=== PATIENT | male | born 1990 | race Two or more races ===

== ENCOUNTER 2023-11-29 16:56 | Emergency (ER) | payer OTHER ==
[~2023-11-29] VITALS: Ht 188 cm; Wt 118.0 kg
[2023-11-29 17:20] VITALS: PULSE 82; RESP 20; O2SAT 97
[2023-11-29] MEDS: ONDANSETRON HCL 4 MG/2 ML VIAL IV ONE ×3 (17:45→22:37)
[2023-11-29] MEDS: MORPHINE SULFATE 4 MG/ML SYR/VIAL IV ONE ×3 (17:46→22:38)
[2023-11-29 19:40] VITALS: TEMP 97.7
[2023-11-29] MEDS: fentaNYL CITRATE 100 MCG/2 ML VL IV ONE (19:54)
[2023-11-29] MEDS: ceFAZolin 1GM/50ML 50 ML IV ONE (20:20)
[2023-11-29] MEDS: SODIUM CHLORIDE 0.9% 1,000 ML IV SCH (20:26)
[2023-11-29] MEDS ORDERED: IBUP-1455 PO (21:26)
[2023-11-29] MEDS ORDERED: HYDR-4798 PO (21:26)
[2023-11-29 22:25] VITALS: O2SAT 97
[2023-11-29 22:38] VITALS: BP 142/88; PULSE 78; RESP 15
== END 2023-11-29 23:15 | disposition home or self-care (01) ==
LOC: ER 16:56
DX: S86.002A Unspecified injury of left Achilles tendon, initial encounter (principal); Z79.899 Other long term (current) drug therapy; V23.49XA Other motorcycle driver injured in collision with car, pick-up truck or van in traffic accident, initial encounter; Y93.I9 Activity, other involving external motion; Y92.89 Other specified places as the place of occurrence of the external cause; Y99.8 Other external cause status
CPT/HCPCS: 70450; 72125; 73700; 96365; 96375; 96376; 99285; J0690; J2270; J2405; J3010